=== PATIENT | male | born 1990 | race Caucasian/White ===

== ENCOUNTER 2017-07-17 13:23 | Inpatient (IN) | payer OTHER ==
[~2017-07-17] VITALS: Ht 188 cm; Wt 108.6 kg
[~2017-07-17 13:23] MED LIST: IBUP800T23 PO
[2017-07-17] MEDS ORDERED: SODIUM CHLOR 0.9% 1000 ML INJ 1,000 ML IV SCH (13:32)
[2017-07-17 13:33] VITALS: BP 131/91; PULSE 93; RESP 22; TEMP 98.2; O2SAT 97
[2017-07-17] MEDS ORDERED: ONDANSETRON HCL 4 MG/2 ML VIAL IV PUSH ONE (13:45)
[2017-07-17] MEDS ORDERED: MORPHINE SULFATE 4 MG/ML INJ IV PUSH ONE (13:45)
[2017-07-17] MEDS ORDERED: SODIUM CHLORIDE 0.9% FLUSH 10 ML FLUSH IVF PRN (13:45)
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
[2017-07-17 14:06] LABS: AUTOMATED NEUTROPHIL # 14.9 TH/MM3 (1.8-7.7); BASOPHIL % 0.2 % (0.0-2.0); EOSINOPHIL # 0.1 TH/MM3 (0-0.4); EOSINOPHIL % 0.3 % (0.0-4.0); HEMATOCRIT 40.7 % (39.0-51.0); HEMOGLOBIN 14.1 GM/DL (13.0-17.0); LYMPHOCYTE # 1.6 TH/MM3 (1.0-4.8); MEAN CELL VOLUME 89.2 FL (80.0-100.0); MEAN CORPUSCULAR HEMOGLOBIN 30.9 PG (27.0-34.0); MEAN CORPUSCULAR HGB CONC 34.7 % (32.0-36.0); MEAN PLATELET VOLUME 7.9 FL (7.0-11.0); MONO % 3.6 % (0.0-8.0); MONOCYTE # 0.6 TH/MM3 (0-0.9); NEUT % 86.9 % (16.0-70.0); PLATELET COUNT 280 TH/MM3 (150-450); RED BLOOD COUNT 4.56 MIL/MM3 (4.50-5.90); RED CELL DISTRIBUTION WIDTH 13.2 % (11.6-17.2); WHITE BLOOD COUNT 17.2 TH/MM3 (4.0-11.0)
[2017-07-17 14:13] LABS: PROTHROMBIN TIME - PATIENT 10.1 SEC (9.8-11.6)
[2017-07-17 14:27] LABS: BICARBONATE 26.4 MEQ/L (21.0-32.0); CALCIUM 8.7 MG/DL (8.5-10.1); CREATININE 0.91 MG/DL (0.60-1.30)
[2017-07-17] MEDS ORDERED: IOHEXOL 350 MG/ML 10 ML VIAL (for RAD DIAG) IVCONTRAST ONE (14:30)
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
[2017-07-17] MEDS ORDERED: HYDROmorphone HCL PF 2 MG/ML VIAL IV PUSH ONE (15:00)
[2017-07-17] MEDS ORDERED: HYDROmorphone HCL PF 1 MG/ML VIAL IV PUSH ONE (15:00)
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
[2017-07-17] MEDS ORDERED: HYDROmorphone HCL PF 1 MG/ML VIAL IVP PRN (15:30)
[2017-07-17] MEDS ORDERED: MISCELLANEOUS NURSING INFORMATION XX SCH (15:30)
[2017-07-17] MEDS ORDERED: CHLORHEXIDINE GLUCONATE 2 % 1 PACK (2 CLOTHS) TOP PRN (15:30)
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
[2017-07-17] MEDS: SODIUM CHLOR 0.9% 1000 ML INJ 1,000 ML IV SCH (15:52)
[2017-07-17] MEDS: METHOCARBAMOL 500 MG TAB PO SCH ×2 (16:06→20:42)
[2017-07-17] MEDS: HYDROmorphone HCL PF 2 MG/ML VIAL IV PRN (20:42)
[2017-07-17] MEDS: DOCUSATE SODIUM 100 MG CAP PO SCH (20:49)
[2017-07-17 20:55] VITALS: BP 169/95; PULSE 78; RESP 18; TEMP 98; O2SAT 96
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
[2017-07-18] MEDS: HYDROmorphone HCL PF 2 MG/ML VIAL IV PRN ×5 (00:08→22:25)
[2017-07-18 00:43] VITALS: BP 155/84; PULSE 51; RESP 18; TEMP 98.6; O2SAT 96
[2017-07-18] MEDS: SODIUM CHLOR 0.9% 1000 ML INJ 1,000 ML IV SCH ×2 (01:22→11:35)
[2017-07-18] MEDS ORDERED: CHLORHEXIDINE GLUCONATE 2 % 1 PACK (2 CLOTHS) TOP SCH (04:00)
[2017-07-18] MEDS: METHOCARBAMOL 500 MG TAB PO SCH ×3 (04:49→20:41)
[2017-07-18 05:16] VITALS: BP 155/82; PULSE 75; RESP 18; TEMP 98.5; O2SAT 97
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
[2017-07-18 06:52] LABS: AUTOMATED NEUTROPHIL # 9.5 TH/MM3 (1.8-7.7); BASOPHIL % 0.3 % (0.0-2.0); EOSINOPHIL # 0.1 TH/MM3 (0-0.4); EOSINOPHIL % 1.1 % (0.0-4.0); HEMATOCRIT 40.5 % (39.0-51.0); LYMPHOCYTE # 2.3 TH/MM3 (1.0-4.8); MEAN CELL VOLUME 88.7 FL (80.0-100.0); MEAN CORPUSCULAR HEMOGLOBIN 30.7 PG (27.0-34.0); MEAN CORPUSCULAR HGB CONC 34.6 % (32.0-36.0); MEAN PLATELET VOLUME 8.2 FL (7.0-11.0); MONO % 5.9 % (0.0-8.0); MONOCYTE # 0.7 TH/MM3 (0-0.9); NEUT % 74.7 % (16.0-70.0); PLATELET COUNT 273 TH/MM3 (150-450); RED BLOOD COUNT 4.56 MIL/MM3 (4.50-5.90); RED CELL DISTRIBUTION WIDTH 12.9 % (11.6-17.2); WHITE BLOOD COUNT 12.7 TH/MM3 (4.0-11.0)
[2017-07-18 07:25] LABS: ALBUMIN 3.7 GM/DL (3.4-5.0); ALKALINE PHOSPHATASE 80 U/L (45-117); ALT (GPT) 24 U/L (12-78); AST (GOT) 14 U/L (15-37); BICARBONATE 25.8 MEQ/L (21.0-32.0); BLOOD UREA NITROGEN 8 MG/DL (7-18); CALCIUM 8.4 MG/DL (8.5-10.1); CHLORIDE 104 MEQ/L (98-107); CREATININE 0.79 MG/DL (0.60-1.30); GLOMERULAR FILTRATION RATE 118 ML/MIN (>89); GLUCOSE,RANDOM 80 MG/DL (74-106); SODIUM (NA) 139 MEQ/L (136-145); TOTAL BILIRUBIN ADULT 1.7 MG/DL (0.2-1.0); TOTAL PROTEIN 7.1 GM/DL (6.4-8.2)
[2017-07-18] MEDS: DOCUSATE SODIUM 100 MG CAP PO SCH ×2 (07:30→20:41)
[2017-07-18 08:00] VITALS: BP 156/80; PULSE 77; RESP 22; TEMP 98.1; O2SAT 97
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
[2017-07-18] MEDS: ONDANSETRON HCL 4 MG/2 ML VIAL IV PUSH PRN (10:41)
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
[2017-07-18 12:45] VITALS: BP 132/95; PULSE 71; RESP 18; TEMP 97.9; O2SAT 97
[2017-07-18] MEDS: REMOVE OLD PATCH T-DERMAL SCH (14:00)
[2017-07-18] MEDS ORDERED: LORazepam 2 MG/ML VIAL IV PUSH SCH (14:00)
[2017-07-18] MEDS: ACETAMINOPHEN 1000 MG/100 ML 100 ML IV SCH ×2 (14:05→20:41)
[2017-07-18] MEDS: LIDOCAINE HCL 5% PATCH T-DERMAL SCH (14:05)
[2017-07-18 16:00] VITALS: BP 128/82; PULSE 58; RESP 20; TEMP 98.4; O2SAT 97
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
[2017-07-18 20:36] VITALS: BP 141/71; PULSE 85; RESP 18; TEMP 97.4; O2SAT 98
[2017-07-18] MEDS: MAGNESIUM HYDROXIDE SUSP 30 ML CUP PO SCH (20:41)
[2017-07-19 00:05] VITALS: BP 140/98; PULSE 71; RESP 18; TEMP 99.5; O2SAT 97
[2017-07-19] MEDS: ACETAMINOPHEN 1000 MG/100 ML 100 ML IV SCH ×2 (02:00→08:00)
[2017-07-19] MEDS: HYDROmorphone HCL PF 2 MG/ML VIAL IV PRN ×5 (02:51→23:09)
[2017-07-19 05:20] VITALS: BP 119/57; PULSE 62; RESP 18; TEMP 97.2; O2SAT 94
[2017-07-19] MEDS: METHOCARBAMOL 500 MG TAB PO SCH ×3 (05:59→21:36)
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
[2017-07-19 08:01] VITALS: BP 139/73; PULSE 66; RESP 20; TEMP 98; O2SAT 97
[2017-07-19] MEDS: DOCUSATE SODIUM 100 MG CAP PO SCH ×2 (09:00→21:35)
[2017-07-19] MEDS: MAGNESIUM HYDROXIDE SUSP 30 ML CUP PO SCH ×2 (09:00→21:32)
[2017-07-19] MEDS: LIDOCAINE HCL 5% PATCH T-DERMAL SCH (09:00)
[2017-07-19] MEDS: REMOVE OLD PATCH T-DERMAL SCH (09:00)
[2017-07-19] MEDS: ONDANSETRON HCL 4 MG/2 ML VIAL IV PUSH PRN ×3 (10:43→23:09)
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
[2017-07-19 12:28] VITALS: BP 130/68; PULSE 52; RESP 20; TEMP 98.3
[2017-07-19 16:45] VITALS: BP 143/65; PULSE 54; RESP 20; TEMP 97.7; O2SAT 95
[2017-07-19 20:00] VITALS: BP 152/87; PULSE 87; RESP 18; TEMP 97.9; O2SAT 96
[2017-07-20] VITALS: BP 158/88; PULSE 81; RESP 18; TEMP 97.8; O2SAT 98
[2017-07-20 04:00] VITALS: BP 133/65; PULSE 51; RESP 18; TEMP 97.5; O2SAT 95
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
[2017-07-20] MEDS: METHOCARBAMOL 500 MG TAB PO SCH ×3 (06:18→22:55)
[2017-07-20] MEDS: HYDROmorphone HCL PF 2 MG/ML VIAL IV PRN (06:18)
[2017-07-20 07:51] VITALS: BP 139/80; PULSE 73; RESP 20; TEMP 98.5; O2SAT 96
[2017-07-20] MEDS ORDERED: IBUPROFEN 800 MG TAB PO SCH (09:00)
[2017-07-20] MEDS ORDERED: fentaNYL 50 MCG/HR PATCH T-DERMAL SCH (09:00)
[2017-07-20] MEDS: REMOVE OLD PATCH T-DERMAL SCH (09:26)
[2017-07-20] MEDS: LIDOCAINE HCL 5% PATCH T-DERMAL SCH (09:26)
[2017-07-20] MEDS: MAGNESIUM HYDROXIDE SUSP 30 ML CUP PO SCH ×2 (09:26→22:53)
[2017-07-20] MEDS: DOCUSATE SODIUM 100 MG CAP PO SCH ×2 (09:27→21:00)
[2017-07-20 11:44] VITALS: BP 135/69; PULSE 60; RESP 20; TEMP 98.4; O2SAT 92
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
[2017-07-20] MEDS: ONDANSETRON HCL 4 MG/2 ML VIAL IV PUSH PRN ×2 (14:39→16:55)
--- NOTE | 2017-07-20 15:15 | RADRPT ---
EXAM DATE/TIME: 07/20/2017 15:06 [facility] COMPARISON: CT BRAIN W/O CONTRAST, July 18, 2017, 11:31. INDICATIONS : Intracerebral hemorrhage. RADIATION DOSE: 38.86 CTDIvol (mGy) MEDICAL HISTORY : ADHD. SURGICAL HISTORY : None. ENCOUNTER: Subsequent ACUITY: 3 days PAIN SCALE: 0/10 LOCATION: cranial TECHNIQUE: Multiple contiguous axial images were obtained of the head. Using automated exposure control and adjustment of the mA and/or kV according to patient size, radiation dose was kept as low as reasonably achievable to obtain optimal diagnostic quality images. DICOM format image data is av ailable electronically for review and comparison. FINDINGS: CEREBRUM: The ventricles are normal for age. No evidence of midline shift, mass lesion, hemorrha ge or acute infarction. No extra-axial fluid collections are seen. POSTERIOR FOSSA: The cerebellum and brainstem are intact. The 4th ventricle is midline. The cer ebellopontine angle is unremarkable. EXTRACRANIAL: The visualized portion of the orbits is intact. SKULL: The calvaria is intact. No evidence of skull fracture. CONCLUSION: Negative CT scan of the head. Arnav Flynn MD FACR on July 20, 2017 at 15:11 Board Certified Radiologist. This report was verified electronically.
[2017-07-20] MEDS: LACTULOSE SYRUP 20 GM/30 ML CUP PO SCH (15:22)
[2017-07-20] MEDS: ENOXAPARIN SODIUM 40 MG/0.4 ML SYRINGE SQ SCH ×2 (15:23→21:00)
[2017-07-20 15:52] VITALS: BP 137/83; PULSE 75; RESP 20; TEMP 97.7; O2SAT 98
[2017-07-20 20:00] VITALS: BP 137/80; PULSE 75; RESP 18; TEMP 98.4; O2SAT 93
[2017-07-21 04:00] VITALS: BP 119/60; PULSE 55; RESP 18; TEMP 97.7; O2SAT 94
[2017-07-21] MEDS: METHOCARBAMOL 500 MG TAB PO SCH ×2 (06:05→15:38)
[2017-07-21] MEDS ORDERED: LACTULOSE SYRUP 20 GM/30 ML CUP PO ONE (07:00)
[2017-07-21 08:00] VITALS: BP 125/71; PULSE 58; RESP 18; TEMP 97.8; O2SAT 95
[2017-07-21] MEDS: REMOVE OLD PATCH T-DERMAL SCH (08:43)
[2017-07-21] MEDS: LIDOCAINE HCL 5% PATCH T-DERMAL SCH (08:43)
[2017-07-21] MEDS: ONDANSETRON HCL 4 MG/2 ML VIAL IV PUSH PRN (08:45)
[2017-07-21] MEDS: DOCUSATE SODIUM 100 MG CAP PO SCH (08:46)
[2017-07-21] MEDS: ENOXAPARIN SODIUM 40 MG/0.4 ML SYRINGE SQ SCH (08:52)
[2017-07-21] MEDS: MAGNESIUM HYDROXIDE SUSP 30 ML CUP PO SCH (08:52)
[2017-07-21] MEDS: LACTULOSE SYRUP 20 GM/30 ML CUP PO SCH (08:52)
[2017-07-21 12:00] VITALS: BP 128/75; PULSE 69; RESP 18; TEMP 97.9; O2SAT 97
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
[2017-07-21] MEDS ORDERED: METH500T3 PO (12:55)
[2017-07-21] MEDS ORDERED: IBUP-1129 PO (12:55)
[2017-07-21] MEDS ORDERED: PERC10TA27 PO (12:55)
[2017-07-21] MEDS ORDERED: DOCU8.6T PO (12:55)
[2017-07-21] MEDS ORDERED: WALKER WHEELS/F1 MIS (12:56)
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
[2017-07-23] MEDS ORDERED: REMOVE OLD DURAGESIC (FENTANYL) PATCH T-DERMAL SCH (09:00)
== END 2017-07-21 16:21 | disposition home or self-care (01) | DRG 86 ==
LOC: NEPC 13:23 → NEDA 15:37 → N05B 16:57
PROVIDERS: ADMIT Surgery Trauma Surgery; ATTEND Surgery Trauma Surgery
DX: S06.5X0A Traumatic subdural hemorrhage without loss of consciousness, initial encounter (principal); S22.41XA Multiple fractures of ribs, right side, initial encounter for closed fracture; S32.049A Unspecified fracture of fourth lumbar vertebra, initial encounter for closed fracture; J98.11 Atelectasis; M75.42 Impingement syndrome of left shoulder; S40.012A Contusion of left shoulder, initial encounter; V28.4XXA Motorcycle driver injured in noncollision transport accident in traffic accident, initial encounter; Y92.410 Unspecified street and highway as the place of occurrence of the external cause; R40.2412 Glasgow coma scale score 13-15, at arrival to emergency department; F17.210 Nicotine dependence, cigarettes, uncomplicated; F12.90 Cannabis use, unspecified, uncomplicated
CPT/HCPCS: 70450; 71045; 71260; 72125; 72129; 72132; 72141; 73030; 74177; 76937; 80048; 80053; 85025; 85610; 85730; 86850; 86900; 86901; 87641; 94150; 94640; 94667; 94668; 96361; 96374; 96375; J0131; J1170; J2060; J2270; J2405; J7030; Q9967

== ENCOUNTER 2017-07-29 12:25 | Emergency (ER) | payer SELFPAY ==
[~2017-07-29] VITALS: Ht 188 cm; Wt 106.5 kg
[~2017-07-29 12:25] MED LIST changes: +DOCU8.6T PO; +IBUP-1129 PO; -IBUP800T23 PO; +METH500T3 PO; +PERC10TA27 PO; +WALKER WHEELS/F1 MIS
[2017-07-29 12:26] VITALS: BP 143/70; PULSE 85; RESP 18; TEMP 98.3; O2SAT 98
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
[2017-07-29] MEDS ORDERED: ORPHENADRINE INJ 60 MG/2 ML AMP IM ONE (15:00)
[2017-07-29] MEDS ORDERED: KETOROLAC TROMETHAMINE 60 MG/2 ML (IM) VIAL IM ONE (15:00)
[2017-07-29] MEDS ORDERED: KETO10 PO (15:33)
[2017-07-29] MEDS ORDERED: CYCL10TA PO (15:33)
[2017-07-29] MEDS ORDERED: HYDR-3366 PO (15:42)
[2017-07-29 15:47] VITALS: RESP 16
[2017-07-29 16:00] VITALS: BP 130/77; TEMP 97.8
== END 2017-07-29 16:00 | disposition home or self-care (01) ==
LOC: NEPD 12:25
DX: S22.42XD Multiple fractures of ribs, left side, subsequent encounter for fracture with routine healing (principal); F90.9 Attention-deficit hyperactivity disorder, unspecified type; F41.9 Anxiety disorder, unspecified; K21.9 Gastro-esophageal reflux disease without esophagitis; F17.210 Nicotine dependence, cigarettes, uncomplicated; Y93.55 Activity, bike riding; Z79.899 Other long term (current) drug therapy
CPT/HCPCS: 71101; 73030; 96372; 99283; J1885; J2360